=== PATIENT | female | born 1970 | race Caucasian/White ===

== ENCOUNTER 2018-05-31 04:48 | Inpatient (IN) ==
[2018-05-31 05:55] LABS: Bilirubin,Urine Negative (Negative); Clarity,Urine Clear (Clear); Color,Urine Yellow (Yellw/Straw); Glucose,Urine (UA) Negative (Negative); Leukocyte Esterase,Urine Negative (Negative); Nitrite,Urine Negative (Negative); PH,Urine 6.5 (5.0-8.5); Specific Gravity,Urine Less/Equal 1.005 (1.002-1.035); Urobilinogen,Urine 0.2 mg/dL (Less than 2)
[2018-05-31 05:56] LABS: Baso % (Auto) 0.6 % (0.0-2.0); Eos % (Auto) 0.7 % (0.0-4.0); Hematocrit 38.3 % (35.0-46.0); Hemoglobin 12.9 gm/dL (11.6-15.3); Lymph # (Auto) 0.9 th/mm3 (1.0-4.8); Mean Corpuscular HGB Conc 33.5 % (32.0-36.0); Mean Corpuscular Hemoglobin 30.7 pg (27.0-34.0); Mean Corpuscular Volume 91.5 fL (80.0-100.0); Mean Platelet Volume 8.1 fL (7.0-11.0); Mono # (Auto) 0.2 th/mm3 (0.0-0.9); Mono % (Auto) 3.9 % (0.0-8.0); Neut # (Auto) 4.6 th/mm3 (1.8-7.7); Neut % (Auto) 79.8 % (16.0-70.0); Platelet Count 255 th/mm3 (150-450); Red Blood Count 4.19 mil/mm3 (4.00-5.30); Red Cell Distribution Width 11.8 % (11.6-17.2); White Blood Count 5.7 th/mm3 (4.0-11.0)
[2018-05-31] MEDS ORDERED: Morphine Inj 4 MG/ML Vial IV.PUSH ONE (05:56)
[2018-05-31] MEDS ORDERED: Pantoprazole Inj 40 MG Vial IV.PUSH ONE (05:56)
--- NOTE | 2018-05-31 05:56 | ED ---
HPI General Chief complaint: GI Bleed Stated complaint: Severe abd pain,rectal bleeding x 11 hrs Time Seen by Provider: 05/31/18 05:28 Source: patient Mode of arrival: ambulatory Limitations: no limitations History of Present Illness HPI Narrative: 47-year-old female presents to the emergency department complaint of 11 hours of progressively worsening severe lower abdominal pain with multiple episodes of watery diarrhea and now with gross hematochezia. Patient did take azithromycin at the beginning of April for upper respiratory bronchitis infection. Patient is otherwise not been on any recent antibiotics. Patient does have irritable bowel syndrome denies history of inflammatory bowel disease Crohn's or colitis. patient had good urine output. No chest pain no shortness of breath no near syncope or syncope. Patient describes her abdominal pain is severe and tearing in nature. No prior history of rectal bleeding. MD complaint: Reports gross hematochezia Onset (ago): hour(s) (11) Pain Consistency: constant Severity: severe Relieving factors: none Exacerbating factors: bowel movement and movement Context: Reports other (IBS); Denies history of GI bleed, liver disease, hemorrhoids, swallowed FB, rectal trauma, alcohol abuse, known esophageal varices, medication/supplement use, foreign travel, unusual food, anticoagulant use and near syncope Associated symptoms: Reports abdominal pain, nausea, chills, malaise and weakness; Denies vomiting, epistaxis, fever, headaches, loss of appetite, easy bruising, rash, other bleeding, shortness of breath and syncope Treatments Prior to Arrival: Reports none Related Data Home Medications Medication Instructions Recorded Confirmed Calcium 500 1 tab PO DAILY 05/31/18 05/31/18 Cholestoff 2 tab PO DAILY 05/31/18 05/31/18 Vitamin D3 1 tab PO DAILY 05/31/18 05/31/18 alprazolam [Xanax] 0.5 tab PO HS PRN 05/31/18 05/31/18 vlexkhd-dsvsvyotwoxyu-hjmbbwjv 1 tab PO Q4-6H PRN 05/31/18 05/31/18 [Excedrin Migraine] ibuprofen 600 mg PO TID PRN 05/31/18 05/31/18 Previous Rx's Medication Instructions Recorded metronidazole [Flagyl] 500 mg PO Q12H #14 tab 05/31/18 ondansetron HCl [Zofran] 4 mg PO Q6H PRN #7 tab 05/31/18 oxycodone-acetaminophen [Percocet] 0.5 - 1 tab PO Q6H PRN #3 tab 05/31/18 Allergies Allergy/AdvReac Type Severity Reaction Status Date / Time No Known Allergies Allergy Verified 05/31/18 05:03 Review of Systems ROS: all other systems reviewed are negative [facility] Medical History Medical History Anxiety (Acute) Cholecystitis (Acute) Gastritis (Acute) IBS (irritable bowel syndrome) (Acute) Surgical History Surgical History History of abdominoplasty (Acute) History of breast augmentation (Acute) History of hysterectomy (Acute) Hx of cholecystectomy (Acute) Social History Social History Substance History: No History of Abuse Second Hand Smoke Exposure: No Smoking Status: Former smoker Tobacco Type: Cigarettes Number of Pack-Years (if former smoker): 6 How Often Do You Have a Drink Containing Alcohol: Monthly or less Recent Out of Country Travel within the Last 8 Weeks: No Immunization History Tetanus Immunization: <5 Years Exam Narrative Exam Narrative: GENERAL: Well-nourished, well-developed patient. SKIN: Focused skin assessment warm/dry. HEAD: Normocephalic. EYES: No scleral icterus. No injection or drainage. NECK: Supple, trachea midline. No JVD or lymphadenopathy. CARDIOVASCULAR: Regular rate and rhythm without murmurs, gallops, or rubs. RESPIRATORY: Breath sounds equal bilaterally. No accessory muscle use. GASTROINTESTINAL: Abdomen soft, diffusely tender abdomen to palpation with voluntary guarding no rebound, nondistended. Rectal exam: Normal sphincter tone gross blood on exam glove pain positive. MUSCULOSKELETAL: No cyanosis, or edema. BACK: Nontender without obvious deformity. No CVA tenderness. Procedures Hemaprompt Stool Procedural Steps Taken: specimen placed in appropriate test area, developer placed on specimen and control areas and controls appropriately positive and negative Hemaprompt Stool Result: positive Course Initial Documented Vital Signs Temperature 98.1 F 05/31/18 05:03 Pulse Rate 97 H 05/31/18 05:03 Respiratory Rate 22 05/31/18 05:03 Blood Pressure 117/73 05/31/18 05:03 Pulse Oximetry 99 05/31/18 05:03 Last Documented Vital Signs Temperature 97.5 F L 06/01/18 08:00 Pulse Rate 93 H 06/01/18 08:00 Respiratory Rate 20 06/01/18 08:00 Blood Pressure 110/64 06/01/18 08:00 Pulse Oximetry 97 06/01/18 08:00 Medical Decision Making MDM Narrative Medical decision making narrative: 47-year-old female presents with severe abdominal pain and hematochezia afebrile IV access obtained specimens collected and sent for resulting patient administered IV fluids Zofran Protonix morphine sulfate. At 6:55 AM patient reports feeling markedly improved after pain medication and IV fluids will be given additional liter of normal saline one-time dose of Flagyl; CAT scan is consistent with mild colitis. Discussed with patient observation admission in view of presentation for pain and hematochezia. Patient states she does not want to be admitted to the hospital as direct desirous of that of a trial of outpatient therapy with clear liquid diet advancing as tolerated and oral antibiotic. Patient plans on close follow-up with primary care provider. At this point time patient is afebrile, without leukocytosis, stable hemoglobin although has dropped 12.9 to 10.6, within normal range vital signs without tachycardia or hypotension, and has had no further rectal bleeding. Will give trial of oral antibiotic although patient is encouraged to stay for observation and is instructed to return immediately for pain recurrent bleeding dizziness fever or any change in condition. C. difficile PCR pending. Medical Screen Exam Complete: Yes Emergency Medical Condition: Yes Differential Diagnosis Differential Diagnosis: GI bleed, C. difficile colitis, colitis, diverticulitis , bowel obstruction, UTI Medical Records Medical records reviewed: Yes I reviewed the patient's medical records. Lab Data Lab results reviewed: Yes I reviewed the patient's lab results. Result diagrams: 06/01/18 05:50 06/01/18 08:06 Lab Results 05/31/18 05/31/18 05/31/18 Range/Units 05:30 05:30 05:30 CBC w Diff Auto diff final WBC 5.7 (4.0-11.0) th/mm3 RBC 4.19 (4.00-5.30) mil/mm3 Hgb 12.9 (11.6-15.3) gm/dL Hct 38.3 (35.0-46.0) % MCV 91.5 (80.0-100.0) fL MCH 30.7 (27.0-34.0) pg MCHC 33.5 (32.0-36.0) % RDW 11.8 (11.6-17.2) % Plt Count 255 (150-450) th/mm3 MPV 8.1 (7.0-11.0) fL Neut % (Auto) 79.8 H (16.0-70.0) % Lymph % (Auto) 15.0 (9.0-44.0) % [place] % (Auto) 3.9 (0.0-8.0) % Eos % (Auto) 0.7 (0.0-4.0) % Baso % (Auto) 0.6 (0.0-2.0) % Neut # (Auto) 4.6 (1.8-7.7) th/mm3 Lymph # (Auto) 0.9 L (1.0-4.8) th/mm3 [place] # (Auto) 0.2 (0.0-0.9) th/mm3 Eos # (Auto) 0.0 (0.0-0.4) th/mm3 Baso # (Auto) 0.0 (0.0-0.2) th/mm3 WBC Differential . Differential Comment . ESR (0-20) mm/hr PT 11.1 (9.8-11.6) sec INR 1.1 Ratio APTT 26.2 (23.4-31.7) sec Sodium 138 (136-145) meq/L Potassium 3.6 (3.5-5.1) meq/L Chloride 105 (98-107) meq/L Carbon Dioxide 27.3 (21.0-32.0) meq/L Anion Gap 6 (5-15) meq/L BUN 7 (7-18) mg/dL Creatinine 0.83 (0.50-1.00) mg/dL Estimated GFR 74 L (>89) mL/min Random Glucose 98 (74-106) mg/dL Calcium 8.7 (8.5-10.1) mg/dL Total Bilirubin 0.3 (0.2-1.0) mg/dL AST 14 L (15-37) U/L ALT 23 (10-53) U/L Alkaline Phosphatase 56 (45-117) U/L C-Reactive Protein (0.00-0.30) mg/dL Total Protein 7.6 (6.4-8.2) g/dL Albumin 4.0 (3.4-5.0) g/dL Lipase 79 (73-393) U/L Urine Color (Yellw/Straw) Urine Clarity (Clear) Urine pH (5.0-8.5) Ur Specific [place] (1.002-1.035) Urine Protein (Neg-Trace) mg/dL Urine Glucose (UA) (Negative) mg/dL Urine Ketones (Negative) mg/dL Urine Occult Blood (Negative) Urine Nitrate (Negative) Urine Bilirubin (Negative) Urine Urobilinogen (Less than 2) mg/dL Ur Leukocyte Esterase (Negative) Urine RBC (0-3) /hpf Urine WBC (0-5) /hpf Ur Squamous Epith Cells (0-5) /hpf Urine Bacteria (None) /hpf Micro UA Comment Ur Microscopic Review Urine Culture Comments Stl C.difficile DNA Amp (Negative) St C. diff Tox Epid 027 (Negative) Rheumatoid Factor Scrn (Negative) Rheumatoid Factor Titer Blood Type Blood Type Recheck Antibody Screen 05/31/18 05/31/18 05/31/18 Range/Units 05:30 05:30 05:45 CBC w Diff WBC (4.0-11.0) th/mm3 RBC (4.00-5.30) mil/mm3 Hgb (11.6-15.3) gm/dL Hct (35.0-46.0) % MCV (80.0-100.0) fL MCH (27.0-34.0) pg MCHC (32.0-36.0) % RDW (11.6-17.2) % Plt Count (150-450) th/mm3 MPV (7.0-11.0) fL Neut % (Auto) (16.0-70.0) % Lymph % (Auto) (9.0-44.0) % [place] % (Auto) (0.0-8.0) % Eos % (Auto) (0.0-4.0) % Baso % (Auto) (0.0-2.0) % Neut # (Auto) (1.8-7.7) th/mm3 Lymph # (Auto) (1.0-4.8) th/mm3 [place] # (Auto) (0.0-0.9) th/mm3 Eos # (Auto) (0.0-0.4) th/mm3 Baso # (Auto) (0.0-0.2) th/mm3 WBC Differential Differential Comment ESR 8 (0-20) mm/hr PT (9.8-11.6) sec INR Ratio APTT (23.4-31.7) sec Sodium (136-145) meq/L Potassium (3.5-5.1) meq/L Chloride (98-107) meq/L Carbon Dioxide (21.0-32.0) meq/L Anion Gap (5-15) meq/L BUN (7-18) mg/dL Creatinine (0.50-1.00) mg/dL Estimated GFR (>89) mL/min Random Glucose (74-106) mg/dL Calcium (8.5-10.1) mg/dL Total Bilirubin (0.2-1.0) mg/dL AST (15-37) U/L ALT (10-53) U/L Alkaline Phosphatase (45-117) U/L C-Reactive Protein (0.00-0.30) mg/dL Total Protein (6.4-8.2) g/dL Albumin (3.4-5.0) g/dL Lipase (73-393) U/L Urine Color Yellow (Yellw/Straw) Urine Clarity Clear (Clear) Urine pH 6.5 (5.0-8.5) Ur Specific [place] Less/equal 1.005 (1.002-1.035) Urine Protein Negative (Neg-Trace) mg/dL Urine Glucose (UA) Negative (Negative) mg/dL Urine Ketones Negative (Negative) mg/dL Urine Occult Blood Negative (Negative) Urine Nitrate Negative (Negative) Urine Bilirubin Negative (Negative) Urine Urobilinogen 0.2 (Less than 2) mg/dL Ur Leukocyte Esterase Negative (Negative) Urine RBC 0-3 (0-3) /hpf Urine WBC 0-5 (0-5) /hpf Ur Squamous Epith Cells 0-5 (0-5) /hpf Urine Bacteria Few H (None) /hpf Micro UA Comment Culture not ind Ur Microscopic Review Microscopic reviewed Urine Culture Comments Culture not ind Stl C.difficile DNA Amp (Negative) St C. diff Tox Epid 027 (Negative) Rheumatoid Factor Scrn (Negative) Rheumatoid Factor Titer Blood Type O Positive Blood Type Recheck Not needed Antibody Screen Negative 05/31/18 06/01/18 06/01/18 Range/Units 10:32 04:05 05:50 CBC w Diff Auto diff final WBC 2.8 L (4.0-11.0) th/mm3 RBC 3.33 L (4.00-5.30) mil/mm3 Hgb 10.6 L D (11.6-15.3) gm/dL Hct 31.2 L (35.0-46.0) % MCV 93.5 (80.0-100.0) fL MCH 31.7 (27.0-34.0) pg MCHC 33.8 (32.0-36.0) % RDW 12.5 (11.6-17.2) % Plt Count 172 D (150-450) th/mm3 MPV 8.5 (7.0-11.0) fL Neut % (Auto) 67.2 (16.0-70.0) % Lymph % (Auto) 23.0 (9.0-44.0) % [place] % (Auto) 8.1 H (0.0-8.0) % Eos % (Auto) 1.0 (0.0-4.0) % Baso % (Auto) 0.7 (0.0-2.0) % Neut # (Auto) 1.9 (1.8-7.7) th/mm3 Lymph # (Auto) 0.7 L (1.0-4.8) th/mm3 [place] # (Auto) 0.2 (0.0-0.9) th/mm3 Eos # (Auto) 0.0 (0.0-0.4) th/mm3 Baso # (Auto) 0.0 (0.0-0.2) th/mm3 WBC Differential . Differential Comment . ESR (0-20) mm/hr PT (9.8-11.6) sec INR Ratio APTT (23.4-31.7) sec Sodium (136-145) meq/L Potassium (3.5-5.1) meq/L Chloride (98-107) meq/L Carbon Dioxide (21.0-32.0) meq/L Anion Gap (5-15) meq/L BUN (7-18) mg/dL Creatinine (0.50-1.00) mg/dL Estimated GFR (>89) mL/min Random Glucose (74-106) mg/dL Calcium (8.5-10.1) mg/dL Total Bilirubin (0.2-1.0) mg/dL AST (15-37) U/L ALT (10-53) U/L Alkaline Phosphatase (45-117) U/L C-Reactive Protein Less than 0.29 (0.00-0.30) mg/dL Total Protein (6.4-8.2) g/dL Albumin (3.4-5.0) g/dL Lipase (73-393) U/L Urine Color (Yellw/Straw) Urine Clarity (Clear) Urine pH (5.0-8.5) Ur Specific [place] (1.002-1.035) Urine Protein (Neg-Trace) mg/dL Urine Glucose (UA) (Negative) mg/dL Urine Ketones (Negative) mg/dL Urine Occult Blood (Negative) Urine Nitrate (Negative) Urine Bilirubin (Negative) Urine Urobilinogen (Less than 2) mg/dL Ur Leukocyte Esterase (Negative) Urine RBC (0-3) /hpf Urine WBC (0-5) /hpf Ur Squamous Epith Cells (0-5) /hpf Urine Bacteria (None) /hpf Micro UA Comment Ur Microscopic Review Urine Culture Comments Stl C.difficile DNA Amp Negative (Negative) St C. diff Tox Epid 027 Negative (Negative) Rheumatoid Factor Scrn Negative (Negative) Rheumatoid Factor Titer Not Reportable Blood Type Blood Type Recheck Antibody Screen 06/01/18 Range/Units 08:06 CBC w Diff WBC (4.0-11.0) th/mm3 RBC (4.00-5.30) mil/mm3 Hgb (11.6-15.3) gm/dL Hct (35.0-46.0) % MCV (80.0-100.0) fL MCH (27.0-34.0) pg MCHC (32.0-36.0) % RDW (11.6-17.2) % Plt Count (150-450) th/mm3 MPV (7.0-11.0) fL Neut % (Auto) (16.0-70.0) % Lymph % (Auto) (9.0-44.0) % [place] % (Auto) (0.0-8.0) % Eos % (Auto) (0.0-4.0) % Baso % (Auto) (0.0-2.0) % Neut # (Auto) (1.8-7.7) th/mm3 Lymph # (Auto) (1.0-4.8) th/mm3 [place] # (Auto) (0.0-0.9) th/mm3 Eos # (Auto) (0.0-0.4) th/mm3 Baso # (Auto) (0.0-0.2) th/mm3 WBC Differential Differential Comment ESR (0-20) mm/hr PT (9.8-11.6) sec INR Ratio APTT (23.4-31.7) sec Sodium 142 (136-145) meq/L Potassium 4.0 (3.5-5.1) meq/L Chloride 109 H (98-107) meq/L Carbon Dioxide 28.4 (21.0-32.0) meq/L Anion Gap 5 (5-15) meq/L BUN 3 L (7-18) mg/dL Creatinine 0.72 (0.50-1.00) mg/dL Estimated GFR 88 L (>89) mL/min Random Glucose 92 (74-106) mg/dL Calcium 7.5 L D (8.5-10.1) mg/dL Total Bilirubin 0.4 (0.2-1.0) mg/dL AST 908 H (15-37) U/L ALT 784 H (10-53) U/L Alkaline Phosphatase 116 (45-117) U/L C-Reactive Protein (0.00-0.30) mg/dL Total Protein 6.6 D (6.4-8.2) g/dL Albumin 3.4 D (3.4-5.0) g/dL Lipase (73-393) U/L Urine Color (Yellw/Straw) Urine Clarity (Clear) Urine pH (5.0-8.5) Ur Specific [place] (1.002-1.035) Urine Protein (Neg-Trace) mg/dL Urine Glucose (UA) (Negative) mg/dL Urine Ketones (Negative) mg/dL Urine Occult Blood (Negative) Urine Nitrate (Negative) Urine Bilirubin (Negative) Urine Urobilinogen (Less than 2) mg/dL Ur Leukocyte Esterase (Negative) Urine RBC (0-3) /hpf Urine WBC (0-5) /hpf Ur Squamous Epith Cells (0-5) /hpf Urine Bacteria (None) /hpf Micro UA Comment Ur Microscopic Review Urine Culture Comments Stl C.difficile DNA Amp (Negative) St C. diff Tox Epid 027 (Negative) Rheumatoid Factor Scrn (Negative) Rheumatoid Factor Titer Blood Type Blood Type Recheck Antibody Screen Imaging Data Radiologist's impression: Abdomen/Pelvis CT 05/31/18 05:56 CONCLUSION: Likely mild distal colitis Discharge Plan Discharge Disposition Patient Disposition: Discharge Home Discharge Condition Condition: Stable Discharge Order Discharge Orders: Discharge Order (Routine); Ordered 05/31/18 Ordered By: Nadya Maza ED Use Only Admit Order (Routine); Ordered 05/31/18 Ordered By: Jae Santana Discharge Details Diagnosis: Colitis Physicians Team ED Provider: Nadya Maza Primary Care Provider: Yoselyn Acevedo Attending Provider: Allen Villegas Other Providers: Alison Patino Status ED Status: Left Department Discharge Information Discharge Date/Time: 05/31/18 11:05
[2018-05-31 06:02] LABS: Chloride 105 meq/L (98-107); Potassium 3.6 meq/L (3.5-5.1); Sodium 138 meq/L (136-145)
[2018-05-31 06:06] LABS: Activated Partial Thrombo Time 26.2 sec (23.4-31.7); Anion Gap 6 meq/L (5-15); Blood Urea Nitrogen 7 mg/dL (7-18); Calcium 8.7 mg/dL (8.5-10.1); Carbon Dioxide 27.3 meq/L (21.0-32.0); Glucose,Random 98 mg/dL (74-106); INR 1.1 Ratio; Lipase 79 U/L (73-393); Prothrombin Time 11.1 sec (9.8-11.6)
[2018-05-31 06:09] LABS: Alanine Aminotransferase 23 U/L (10-53); Aspartate Aminotransferase 14 U/L (15-37); Glomerular Filtration Rate 74 mL/min (>89)
[2018-05-31 06:11] LABS: Total Protein 7.6 g/dL (6.4-8.2)
[2018-05-31 06:12] LABS: Bacteria,Urine Few /hpf; RBC,Urine 0-3 /hpf (0-3); Squamous Epithelial Cell,Urine 0-5 /hpf (0-5); WBC,Urine 0-5 /hpf (0-5)
[2018-05-31 06:12] LABS: Alkaline Phosphatase 56 U/L (45-117)
--- NOTE | 2018-05-31 06:47 | CT ---
EXAM DATE: 05/31/2018 6:36 AM EST AGE/SEX: 47 years / Female INDICATIONS: Abdomen pain with bloody diarrhea for 12 hours CLINICAL DATA: This is the patient's initial encounter. Patient reports that signs and symptoms have been present for 1 day and indicates a pain score of 7/10. MEDICAL/SURGICAL HISTORY: Inflammatory bowel disease. Cholecystectomy. Hysterectomy. ORAL CONTRAST: No oral contrast ingested. RADIATION DOSE: 8.63 CTDI (mGy) COMPARISON: [facility], CT ABDOMEN & PELVIS W CONTRAST, 01/02/2016. . TECHNIQUE: Multiple contiguous axial images were obtained through the abdomen and pelvis following b olus infusion of 100 ml Omnipaque 350 (iohexol) nonionic water-soluble contrast as a single exam do se. No oral contrast ingested. Using automated exposure control and adjustment of the mA and/or kV a ccording to patient size, radiation dose was kept as low as reasonably achievable to obtain optimal d iagnostic quality images. DICOM format image data is available electronically for review and compari son. FINDINGS: Lower Lungs: The visualized lower lungs are clear. Liver: The liver has a homogeneous density without space-occupying lesion. There is no dilation of th e biliary tree. Spleen: Homogeneous density without enlargement. Pancreas: Unremarkable without mass or calcification. Kidneys: Small cyst in the anterior lateral lower pole cortex of the left kidney. No evidence of karla picious mass, stone or hydronephrosis. Adrenal Glands: Unremarkable. Aorta: The aorta and proximal iliac vessels are grossly unremarkable without aneurysmal dilation. Bowel/Mesentery: Mild concentric wall thickening involving the distal colon which is decompressed. N o abnormal dilatation or focal inflammatory change. Abdominal Wall: Intact. Retroperitoneum: No evidence of adenopathy in the retrocrural, para-aortic, or deep pelvic regions. Circumaortic left renal vein Bladder: Contours are smooth. Reproductive Organs: Uterus surgically absent. Tiny cyst in presumed retained right ovary Inguinal: The inguinal region is unremarkable without evidence of adenopathy. Bony Structures: Unremarkable. CONCLUSION: Likely mild distal colitis Electronically signed by: Reji Allen MD Board Certified Radiologist 05/31/2018 6:45 AM EST
[2018-05-31] MEDS ORDERED: Sod Chloride 0.9% Inj 1,000 ML IV.SIG SCH (07:15)
[2018-05-31] MEDS ORDERED: Acetaminophen 325 MG Tablet PO PRN (10:11)
[2018-05-31] MEDS: metroNIDAZOLE 500 MG Tablet PO SCH ×2 (10:41→13:26)
[2018-05-31] MEDS: Sod Chloride 0.9% Inj 1,000 ML IV.CONT SCH ×2 (10:50→20:46)
[2018-05-31] MEDS: Lactobacillus Acidophilus/L. Spores Tablet PO SCH ×2 (12:05→18:38)
[2018-05-31] MEDS: Morphine Sulfate Inj 2 MG/ML Vial IV.PUSH PRN ×3 (14:46→22:37)
--- NOTE | 2018-05-31 15:42 | P.HPIM ---
History of Present Illness Primary Care Physician: Yoselyn Acevedo Chief Complaint: Abdominal pain, bright red blood per rectum History of Present Illness: 47-year-old female with known history of bowel syndrome, anxiety who presented to hospital for evaluation of abdominal pain, blood in her stool. Patient states that she is in normal state of health until yesterday proxy [id number] when she started developing abdominal pain. She contributed this to her irritable bowel syndrome and usually she will have a bowel movement and the pain goes away and she is much better. However, the patient had a bowel movement the pain did not go away and she started noticing that her stool was looser than usual and that there was bright red blood in her stool. Patient states that she had approximately 10 bowel movements after that and the more she had the more consistency of blood and there was stool. Because it did not get any better she came to the hospital for evaluation. Upon initial workup patient has CT scan which did indicate likely mild distal colitis. Patient was given morphine for the pain in the emergency department with only temporary relief the pain did come back. Because of the patient's symptoms, bloody stool it was recommended by the ER physician that the patient be admitted to hospital for further evaluation and management. Review of Systems Review of Systems: all other systems reviewed are negative Gastrointestinal: Reports abdominal pain, Reports hematochezia and Reports change in stool character [facility] Medical History Medical History Anxiety (Acute) Cholecystitis (Acute) Gastritis (Acute) IBS (irritable bowel syndrome) (Acute) Surgical History Surgical History History of abdominoplasty (Acute) History of breast augmentation (Acute) History of hysterectomy (Acute) Hx of cholecystectomy (Acute) Social History Social History Substance History: No History of Abuse Second Hand Smoke Exposure: No Smoking Status: Former smoker Tobacco Type: Cigarettes Number of Pack-Years (if former smoker): 6 How Often Do You Have a Drink Containing Alcohol: Monthly or less Recent Out of Country Travel within the Last 8 Weeks: No Immunization History Tetanus Immunization: <5 Years Medications and Allergies Allergies Allergy/AdvReac Type Severity Reaction Status Date / Time No Known Allergies Allergy Verified 05/31/18 05:03 Home Medications Medication Instructions Recorded Confirmed Type Calcium 500 1 tab PO DAILY 05/31/18 05/31/18 History Cholestoff 2 tab PO DAILY 05/31/18 05/31/18 History Vitamin D3 1 tab PO DAILY 05/31/18 05/31/18 History alprazolam [Xanax] 0.5 tab PO HS PRN 05/31/18 05/31/18 History aoesrcn-tklrhrvkodrkq-kuzhocll 1 tab PO Q4-6H PRN 05/31/18 05/31/18 History [Excedrin Migraine] ibuprofen 600 mg PO TID PRN 05/31/18 05/31/18 History Active Medications: Active Medications Acetaminophen (Tylenol) 650 mg PO Q4H PRN PRN Reason: Temp > 100.4 Al Hydroxide/Mg Hydroxide (Milk Of Magnemory Liq) 30 ml PO Q12H PRN PRN Reason: Mild Constipation Sodium Chloride (Ns Inj) 1,000 mls @ 100 mls/hr IV.CONT .Q10H [facility] Last Infusion: 05/31/18 11:03 Dose: 100 mls/hr Metronidazole/Sodium Chloride (Flagyl 250 Mg Inj) 50 mls @ 100 mls/hr IV.SIG Q8H [facility] Last Admin: 05/31/18 14:47 Dose: 100 mls/hr Lactobacillus Acidophilus (Lactinex) 1 tab PO TID [facility] Last Admin: 05/31/18 12:05 Dose: 1 tab Morphine Sulfate (Morphine Inj) 2 mg IV.PUSH Q4H PRN PRN Reason: PAIN 3-6 Last Admin: 05/31/18 14:46 Dose: 2 mg Morphine Sulfate (Morphine Inj) 4 mg IV.PUSH Q4H PRN PRN Reason: Pain 7 to 10 Ondansetron HCl (Zofran Inj) 4 mg IV.PUSH Q6H PRN PRN Reason: NAUSEA OR VOMITING Last Admin: 05/31/18 14:58 Dose: 4 mg Sodium Chloride (Ns Flush) 2 ml IV.FLUSH BID [facility] Sodium Chloride (Ns Flush) 2 ml IV.FLUSH PRN PRN PRN Reason: FLUSH AFTER USING IV ACCESS Physical Exam Vital signs: Vital Signs 05/31/18 05:03 05/31/18 05:57 05/31/18 06:09 Temperature 98.1 F Pulse Rate 97 H 81 Respiratory Rate 22 22 Blood Pressure 117/73 111/76 Pulse Oximetry 99 99 98 05/31/18 06:11 05/31/18 06:15 05/31/18 07:00 Temperature Pulse Rate 83 84 Respiratory Rate 16 Blood Pressure 104/71 Pulse Oximetry 98 95 05/31/18 07:22 05/31/18 09:34 05/31/18 10:35 Temperature Pulse Rate 82 83 74 Respiratory Rate 16 16 Blood Pressure 125/76 116/84 Pulse Oximetry 100 05/31/18 12:00 Temperature 96 F L Pulse Rate 84 Respiratory Rate 20 Blood Pressure 107/70 Pulse Oximetry 98 Intake & Output 05/30/18 05/31/18 05/31/18 18:59 06:59 18:59 Intake Total 1120 / 1120 Balance 1120 / 1120 Weight 65.7 kg Intake: IV 1120 / 1120 NS Inj 1,000 ML @ 100 mls/hr IV 20 / .CONT .Q10H [facility] Rx#:[id number] NS Inj 1,000 ML @ 1000 mls/hr 1000 / 1000 IV.SIG BOLUS [facility] Rx#:[id number] Flagyl 500 MG Inj 100 ML @ 100 100 / 100 mls/hr IV.SIG ONCE ONE Rx#: [id number] Narrative: GENERAL: Well-developed, well-nourished, in no acute distress. alert and orientated HEENT: Head is normocephalic without any lesions or masses noted. Facial features are symmetric. Eyes: Pupils equal round reactive to light. Extraocular muscles are intact. Conjunctivae were clear. Oropharyngeal: Pharynx without any erythema edema. Tongue is midline without deviation. Buccal mucosa is moist without any masses or lesions NECK: Supple without any masses. Trachea midline no deviation. No JVD, no bruits are appreciated CARDIAC: Regular rhythm, regular rate. S1/S2 are heard. No murmurs gallops or rubs. LUNGS: Clear to auscultation bilaterally. No wheeze, rhonchi or rales. No use of accessory muscles on inspiration or expiration. ABDOMEN: Soft, direct tenderness noted in the left lower quadrant. Nondistended. Bowel sounds heard in all 4 quadrants. No organomegaly or masses. Negative rebound, negative guarding EXTREMITIES: No edema, pulses are equal bilaterally. No cyanosis or clubbing NEUROLOGY: Mood and affect appear appropriate. Cranial nerves II through XII grossly intact. Muscle strength 5/5 in upper and lower extremities bilaterally. Deep tendon reflexes are 2+ in upper and lower extremities bilaterally. Results Labs CBC & Chem 7: 05/31/18 05:30 05/31/18 05:30 Imaging Impressions Abdomen/Pelvis CT 05/31/18 05:56 CONCLUSION: Likely mild distal colitis Caprini VTE Risk Assessment Caprini VTE Risk Assessment: No/Low Risk (score <= 1) Caprini Risk Assessment Model: Point Value = 1 Point Value = 2 Point Value = 3 Point Value = 5 Age 41-60 Minor surgery BMI > 25 kg/m2 Swollen legs Varicose veins or History of unexplained or recurrent spontaneous Oral contraceptives or hormone replacement Sepsis (< 1 month) Serious lung disease, including pneumonia (< 1 month) Abnormal pulmonary function Acute myocardial infarction Congestive heart failure (< 1 month) History of inflammatory bowel disease Medical patient at bed rest Age 61-74 Arthroscopic surgery Major open surgery (> 45 min) Laparoscopic surgery (> 45 min) Malignancy Confined to bed (> 72 hours) Immobilizing plaster cast Central venous access Age >= 75 History of VTE Family history of VTE Factor V Leiden Prothrombin [id number] Lupus anticoagulant Anticardiolipin antibodies Elevated serum homocysteine Heparin-induced thrombocytopenia Other congenital or acquired thrombophilia Stroke (< 1 month) Elective arthroplasty Hip, pelvis, or leg fracture Acute spinal cord injury (< 1 month) Prophylaxis Regimen: Total Risk Factor Score Risk Level Prophylaxis Regimen 0-1 Low Early ambulation 2 Moderate Order ONE of the following: *Sequential Compression Device (SCD) *Heparin 5000 units SQ BID 3-4 Higher Order ONE of the following medications: *Heparin 5000 units SQ TID *Enoxaparin/Lovenox 40 mg SQ daily (WT < 150 kg, CrCl > 30 mL/min) *Enoxaparin/Lovenox 30 mg SQ daily (WT < 150 kg, CrCl > 10-29 mL/min) *Enoxaparin/Lovenox 30 mg SQ BID (WT < 150 kg, CrCl > 30 mL/min) AND/OR *Sequential Compression Device (SCD) 5 or more Highest Order ONE of the following medications: *Heparin 5000 units SQ TID (Preferred with Epidurals) *Enoxaparin/Lovenox 40 mg SQ daily (WT < 150 kg, CrCl > 30 mL/min) *Enoxaparin/Lovenox 30 mg SQ daily (WT < 150 kg, CrCl > 10-29 mL/min) *Enoxaparin/Lovenox 30 mg SQ BID (WT < 150 kg, CrCl > 30 mL/min) AND *Sequential Compression Device (SCD) Assessment and Plan Plan Acute colitis with hematochezia CT scan indicating likely mild distal colitis No significant leukocytosis. Hemoglobin appears to be stable from previous labs but given the patient having 10 bowel movements with bloody stool would expect serial hemoglobin to drop. Continue antibiotics to include Cipro and Flagyl, probiotic for Protection Check stool for C. difficile, enteric pathogens, WBCs, ova and parasites Consult GI for further recommendations Continue IV fluids Continue pain control DVT prevention Sequential compression devices Avoid chemical prophylaxis secondary to hematochezia Discussed Condition With: Patient, nursing staff, Dr. Villegas H&P: Quality VTE Deep Vein Thrombosis/Pulmonary Embolism Present on Admission: No
[2018-05-31] MEDS: Ciprofloxacin 400 MG/200 ML 400 MG/200 ML PIGGYBACK IV.SIG SCH (16:18)
[2018-05-31] MEDS ORDERED: Magnesium Citrate Liq 300 ML Bottle PO ONE (18:50)
--- NOTE | 2018-05-31 21:30 | MB ---
cc: Alison Patino MD, Daniel C MD , Alison Patino MD DATE: 05/31/[address] Allen Villegas. REASON FOR CONSULTATION: Rectal bleeding, abdominal pain and colitis. HISTORY OF PRESENT ILLNESS: Ms. Lopez is a 47-year-old lady with previous history of IBS presents with 1-day history of lower abdominal discomfort associated with rectal bleeding and some diarrhea. She says she has never had any problems with bleeding in the past, although she has had diarrhea and lower abdominal pain related to her IBS in the past. She says generally she is more constipated, but never has had bleeding in the past. CT scan on admission shows left-sided colitis. REVIEW OF SYSTEMS: The patient is still having left lower quadrant discomfort, but has had no bowel movement since admission. There has been no bleeding, no diarrhea. PAST MEDICAL HISTORY: Anxiety, gastritis, irritable bowel syndrome. PAST SURGICAL HISTORY: Cholecystectomy, abdominoplasty, breast augmentation, hysterectomy. SOCIAL HISTORY: Quit smoking some time ago. No alcohol reported. MEDICATIONS: NONE DOCUMENTED. MEDICINES ON ADMISSION: Include 1. Xanax. 2. Excedrin. 3. Ibuprofen. 4. Calcium. 5. Currently also on lactobacillus. 6. Metronidazole 7. Zofran. PHYSICAL EXAMINATION: GENERAL: Reveals a well-nourished lady in no apparent distress. VITAL SIGNS: Stable. HEAD AND NECK: Anicteric sclerae. LUNGS: Bilateral air entry with rales. ABDOMEN: Soft. Tenderness in the left lower quadrant. No guarding, no rigidity. CENTRAL NERVOUS SYSTEM: Nonfocal. RECTAL: Deferred at this time. LABORATORY DATA: Reveal white cell count of 5.7, hemoglobin 12.9, INR 1.1. Creatinine 0.83. Liver functions are normal. CT of the abdomen and pelvis reveals left colon colitis. IMPRESSION: Colitis, likely infectious colitis. RECOMMENDATIONS: Options discussed with the patient including waiting for stool studies. The patient has already been started on antibiotics. The other option will be to proceed with a colonoscopy. The patient wishes to proceed with a colonoscopy. Magnesium citrate prep would be used. This is scheduled for tomorrow. Further recommendations to follow based on the above. MD Polina Marte , 06:41 PM , 06:48 PM
[2018-05-31] MEDS: ALPRAZolam 0.25 MG Tablet PO PRN (22:37)
[2018-06-01] MEDS: Morphine Sulfate Inj 2 MG/ML Vial IV.PUSH PRN ×2 (03:41→09:19)
[2018-06-01] MEDS: Ciprofloxacin 400 MG/200 ML 400 MG/200 ML PIGGYBACK IV.SIG SCH ×2 (03:42→17:19)
[2018-06-01] MEDS: Sod Chloride 0.9% Inj 1,000 ML IV.CONT SCH ×3 (05:53→18:14)
[2018-06-01 06:23] LABS: Baso % (Auto) 0.7 % (0.0-2.0); Hematocrit 31.2 % (35.0-46.0); Hemoglobin 10.6 gm/dL (11.6-15.3); Lymph # (Auto) 0.7 th/mm3 (1.0-4.8); Mean Corpuscular HGB Conc 33.8 % (32.0-36.0); Mean Corpuscular Hemoglobin 31.7 pg (27.0-34.0); Mean Corpuscular Volume 93.5 fL (80.0-100.0); Mean Platelet Volume 8.5 fL (7.0-11.0); Mono # (Auto) 0.2 th/mm3 (0.0-0.9); Mono % (Auto) 8.1 % (0.0-8.0); Neut # (Auto) 1.9 th/mm3 (1.8-7.7); Neut % (Auto) 67.2 % (16.0-70.0); Platelet Count 172 th/mm3 (150-450); Red Blood Count 3.33 mil/mm3 (4.00-5.30); Red Cell Distribution Width 12.5 % (11.6-17.2); White Blood Count 2.8 th/mm3 (4.0-11.0)
[2018-06-01 06:26] LABS: Chloride 109 meq/L (98-107); Sodium 142 meq/L (136-145)
[2018-06-01 09:02] LABS: Anion Gap 5 meq/L (5-15); Blood Urea Nitrogen 3 mg/dL (7-18); Calcium 7.5 mg/dL (8.5-10.1); Carbon Dioxide 28.4 meq/L (21.0-32.0); Glomerular Filtration Rate 88 mL/min (>89); Glucose,Random 92 mg/dL (74-106); Total Protein 6.6 g/dL (6.4-8.2)
[2018-06-01 09:03] LABS: Albumin 3.4 g/dL (3.4-5.0); Alkaline Phosphatase 116 U/L (45-117)
[2018-06-01 09:07] LABS: Alanine Aminotransferase 784 U/L (10-53); Aspartate Aminotransferase 908 U/L (15-37)
[2018-06-01] MEDS: Lactobacillus Acidophilus/L. Spores Tablet PO SCH ×3 (09:26→18:11)
--- NOTE | 2018-06-01 11:05 | P.PNIM ---
Subjective Interval history: 47-year-old female who is seen examined for follow- up on colitis, hematochezia. Patient states that she has been experiencing worse headache she is ever had in her life and it is different than her typical migraines. States that if she pushes on her bilateral christianity area it does give some minimal relief. Awaiting colonoscopy. Vital signs are stable. Patient remains afebrile. Physical Exam Vital signs: Vital Signs 05/31/18 12:00 05/31/18 14:48 05/31/18 16:00 Temperature 96 F L 96.3 F L Pulse Rate 84 74 Respiratory Rate 20 18 20 Blood Pressure 107/70 115/69 Pulse Oximetry 98 96 05/31/18 18:40 05/31/18 19:15 05/31/18 20:00 Temperature 96.9 F L Pulse Rate 78 Respiratory Rate 18 18 Blood Pressure 114/62 Pulse Oximetry 97 99 06/01/18 00:00 06/01/18 08:00 Temperature 97.1 F L 97.5 F L Pulse Rate 85 93 H Respiratory Rate 16 20 Blood Pressure 102/60 110/64 Pulse Oximetry 96 97 Intake & Output 05/31/18 06/01/18 06/01/18 18:59 06:59 18:59 Intake Total 1770 / 1770 3280 / 3280 Balance 1770 / 1770 3280 / 3280 Weight 65.7 kg 65.7 kg Intake: IV 1370 / 1370 2280 / 2280 NS Inj 1,000 ML @ 100 mls/hr IV 1979 .CONT .Q10H [facility] Rx#:[id number] Cipro 400 MG/200 ML Inj 400 mg 200 / 200 200 / 200 In 200 ml @ 200 mls/hr IV.SIG Q12H [facility] Rx#:[id number] NS Inj 1,000 ML @ 1000 mls/hr 1000 / 1000 IV.SIG BOLUS [facility] Rx#:[id number] Flagyl 250 mg Inj 50 ML @ 100 50 / 50 100 / 100 mls/hr IV.SIG Q8H [facility] Rx#: [id number] Flagyl 500 MG Inj 100 ML @ 100 100 / 100 mls/hr IV.SIG ONCE ONE Rx#: [id number] Oral 400 / 400 Oral Supplement 1000 / 1000 Other: # Voids 1 2 Weight On Admission 65.7 kg Narrative: GENERAL: Well-developed, well-nourished, in no acute distress. alert and orientated HEENT: Head is normocephalic without any lesions or masses noted. Facial features are symmetric. Eyes: Extraocular muscles are intact. Conjunctivae were clear. NECK: Supple without any masses. Trachea midline no deviation. No JVD CARDIAC: Regular rhythm, regular rate. S1/S2 are heard. No murmurs gallops or rubs. LUNGS: Clear to auscultation bilaterally. No wheeze, rhonchi or rales. No use of accessory muscles on inspiration or expiration. ABDOMEN: Soft, nontender. Nondistended. Bowel sounds heard in all 4 quadrants. No organomegaly or masses. Negative rebound, negative guarding EXTREMITIES: No edema, pulses are equal bilaterally. No cyanosis or clubbing NEUROLOGY: Mood and affect appear appropriate. Cranial nerves II through XII grossly intact. Moving all extremities, speech is clear Results Labs CBC & Chem 7: 06/01/18 05:50 06/01/18 08:06 Assessment and Plan Plan Acute colitis with hematochezia CT scan indicating likely mild distal colitis No significant leukocytosis. Hemoglobin hematocrit have had a mild decrease from 12.9 -->10.6 Continue antibiotics Cipro and Flagyl, probiotic for Protection Stool for C. difficile was negative Enteric pathogens, WBCs, ova and parasites are pending Consulted GI for further recommendations, plans for colonoscopy today Continue IV fluids Continue pain control Acute liver enzyme elevation Unknown etiology at this time Reviewed medication list and list does not appear to have any medication can cause acute liver injury Given the patient presenting with abdominal pain, diarrhea, recent illness. Possible acute hepatitis. However bilirubin was normal, liver enzymes with acute elevation with AST going from 14--> 908 Obtain liver ultrasound Obtain hepatitis panel Cephalgia Patient does have history of migraines, however, She indicates that this headache is worse than any headache she had before and is different than her normal headaches Possible etiology could be the use of morphine CT of the brain did not indicate any acute abnormality Imitrex for cephalgia DVT prevention Sequential compression devices Avoid chemical prophylaxis secondary to hematochezia Discussed Condition With: Patient, nursing staff, Dr. Villegas ATTENDING COMMENTS: New onset hepatitis today. Etiology may be reactive vs. autoimmune. Ciprofloxacin discontinued for possible hepatitis reactivity. 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 Flagyl discontinued for possible headache reaction. Zosyn started as a replacement for enteric coverage , until finalized enteric pathogen studies resulted. If steroids suggest benefit, the possibility of a steroid taper and recommendation for further investigation into food allergy/reactivity is discussed with the patient, for recommended persuit as an outpatient. For now, monitor for improvements in headache, hepatitis, and colitis. Progress Note: Quality VTE Deep Vein Thrombosis/Pulmonary Embolism Present on Admission: No
[2018-06-01] MEDS ORDERED: Chlorhexidine Gluconate 2% 1 Pack (2 Cloths) TOPICAL ONE ×2 (11:55→12:06)
[2018-06-01] MEDS ORDERED: Metoprolol Tartrate 25 MG Tablet PO ONE (11:55)
[2018-06-01] MEDS ORDERED: Sodium Chlor 0.9% Inj 500 ML IV.SIG SCH ×2 (12:00→13:00)
[2018-06-01] MEDS ORDERED: Famotidine PF Inj 20 MG/2 ML Vial ONE (12:21)
--- NOTE | 2018-06-01 13:08 | GIPROC ---
[facility] [address], [address] COLONOSCOPY PROCEDURE REPORT EXAM DATE: 06/01/2018 PATIENT NAME: Lisette Lopez MR #: [id number] BIRTHDATE: 1970 ENDOSCOPIST: Alison Patino ORDER #: [id number] CLAIMS INVESTIGATOR: Kole Luo and Maddie Rivera STATUS: inpatient INDICATIONS: The patient is a 47 yr old female here for a colonoscopy due to abdominal pain and hematochezia PROCEDURE PERFORMED: Colonoscopy with biopsy MEDICATIONS: None and Per Anesthesia. PREP QUALITY: The [place] Bowel Prep Score was Right colon 2, Mid colon 2, and Left colon 2. Total = 6. PREP TYPE:Magnesium Citrate ESTIMATED BLOOD LOSS: None CONSENT: The patient understands the risks and benefits of the procedure and understands that these risks include, but are not limited to: sedation, allergic reaction, infection, perforation and/or bleeding. Alternative means of evaluation and treatment include, among others: physical exam, x-rays, and/or surgical intervention. The patient elects to proceed with this endoscopic procedure. medical equipment was checked for proper function. Hand hygiene and appropriate measures for infection prevention was taken. After the risks, benefits and alternatives of the procedure were thoroughly explained, Informed consent was verified, confirmed and timeout was successfully executed by the treatment team. A digital exam revealed external hemorrhoids The Pentax [id number] endoscope was introduced through the anus and advanced to the cecum, which was identified by both the appendix and ileocecal valve. The instrument was then slowly withdrawn as the colon was fully examined. COLON FINDINGS: A diffuse circumferential patch of colitis was found in the descending colon and sigmoid colon. The mucosa was congested, edematous, erythematous and friable. This is consistent with infectious colitis disease. Multiple biopsies were performed using cold forceps. Retroflexed views revealed internal hemorrhoids and Retroflexed views revealed small internal hemorrhoids The scope was then completely withdrawn from the patient and the procedure terminated. PROCEDURE WITHDRAWAL TIME:7minutes ADVERSE EVENTS: There were no complications. IMPRESSIONS: 1. Diffuse circumferential colitis was found in the descending colon and sigmoid colon; The mucosa was congested, edematous, erythematous and friable; This is consistent with infectious colitis.; multiple biopsies were performed using cold forceps 2. Retroflexed views revealed internal hemorrhoids 3. Retroflexed views revealed small internal hemorrhoids 4. Revealed external hemorrhoids RECOMMENDATIONS: 1. Await biopsy results. Biopsy results will not be ready for 7-10 days. If you don't hear from us in two weeks, call our office for results. 2. Continue surveillance 3. Yearly hemoccult RECALL: Return 1 year Colonoscopy, pending biopsy results Alison Patino eSigned: Alison Patino MD 06/01/2018 1:08 PM cc: Alli Mitchell M.D. PATIENT NAME: Lisette Lopez MR#: [id number]
[2018-06-01 13:35] LABS: Anti-Nuclear Antibody Screen Pos (Neg)
--- NOTE | 2018-06-01 13:56 | CT ---
EXAM DATE: 06/01/2018 1:50 PM EST AGE/SEX: 47 years / Female INDICATIONS: Severe headache. CLINICAL DATA: This is the patient's initial encounter. Patient reports that signs and symptoms have been present for 1 day and indicates a pain score of 9/10. MEDICAL/SURGICAL HISTORY: . Gastritis. Cholecystectomy. Hysterectomy. RADIATION DOSE: 61.14 CTDI (mGy) COMPARISON: No prior exams available for comparison. TECHNIQUE: CT of the head without contrast. Using automated exposure control and adjustment of the mA and/or kV according to patient size, radiation dose was kept as low as reasonably achievable to ob tain optimal diagnostic quality images. DICOM format image data is available electronically for revi ew and comparison. FINDINGS: Cerebrum: The ventricles are normal for age. No evidence of midline shift, mass lesion, hemorrhage or acute infarction. No extraaxial fluid collections are seen. Posterior Fossa: The cerebellum and brainstem are intact. The 4th ventricle is midline. The cerebe llopontine angle is unremarkable. Extracranial: The visualized portion of the orbits is intact. Skull: The calvaria is intact. Small osteoma right frontal bone No evidence of skull fracture. CONCLUSION: 1. Negative for acute process. Inflammatory process cannot be excluded on noncontrast CT. . . Electronically signed by: José Torrez MD Board Certified Radiologist 06/01/2018 1:55 PM EST
--- NOTE | 2018-06-01 14:37 | US ---
EXAM DATE: 06/01/2018 2:27 PM EST AGE/SEX: 47 years / Female INDICATIONS: Acute liver enzyme elevation. CLINICAL DATA: This is the patient's initial encounter. Patient reports that signs and symptoms have been present for 1 day and indicates a pain score of 0/10. MEDICAL/SURGICAL HISTORY: . Inflammatory bowel disease. . Cholecystectomy. Hysterectomy COMPARISON: [facility], CT ABDOMEN & PELVIS W CONTRAST, 05/31/2018. . MEASUREMENTS: Liver:__ 15.2 cm. Common Bile Duct:__ 9mm. Right Kidney:__ 10.1 x 3.7 x 5.1 cm. FINDINGS: Liver: Normal echogenicity without focal lesion or ductal dilatation. Portal Vein: Hepatopedal flow seen in portal vein. Common Duct: 9 mm common duct, probably reservoir phenomena. Gallbladder: Surgically absent. Pancreas: The visualized portions are within normal limits Right Kidney: Normal echogenicity and cortical thickness. No mass or hydronephrosis. Other: No ascites CONCLUSION: 1. Gallbladder surgically absent with 9 mm common duct, probably reservoir phenomena Electronically signed by: José Torrez MD Board Certified Radiologist 06/01/2018 2:35 PM EST
[2018-06-01] MEDS: Morphine Inj 4 MG/ML Vial IV.PUSH PRN (16:09)
[2018-06-01] MEDS ORDERED: MethylPREDNISolone Sod Succinate Inj 40 MG/ML Vial IV.PUSH ONE (17:09)
[2018-06-01] MEDS: Piperacil/Tazo 3.375 GM Premix 3.375 GM/50 ML PIGGYBACK IV.SIG SCH (19:23)
[2018-06-01] MEDS: ALPRAZolam 0.25 MG Tablet PO PRN (20:58)
[2018-06-01] MEDS: MethylPREDNISolone Sod Succinate Inj 40 MG/ML Vial IV.PUSH SCH (23:17)
[2018-06-01] MEDS ORDERED: Famotidine 20 MG Tablet PO ONE (23:49)
[2018-06-02] MEDS: Sod Chloride 0.9% Inj 1,000 ML IV.CONT SCH ×2 (03:56→15:43)
[2018-06-02] MEDS: Piperacil/Tazo 3.375 GM Premix 3.375 GM/50 ML PIGGYBACK IV.SIG SCH ×4 (03:57→20:46)
[2018-06-02] MEDS: MethylPREDNISolone Sod Succinate Inj 40 MG/ML Vial IV.PUSH SCH ×3 (05:02→17:24)
[2018-06-02] MEDS: Morphine Inj 4 MG/ML Vial IV.PUSH PRN ×2 (05:16→22:37)
[2018-06-02 06:27] LABS: Baso % (Auto) 0.1 % (0.0-2.0); Eos % (Auto) 0.1 % (0.0-4.0); Hematocrit 34.7 % (35.0-46.0); Hemoglobin 11.8 gm/dL (11.6-15.3); Lymph # (Auto) 0.5 th/mm3 (1.0-4.8); Lymph % (Auto) 8.1 % (9.0-44.0); Mean Corpuscular HGB Conc 33.9 % (32.0-36.0); Mean Corpuscular Hemoglobin 31.5 pg (27.0-34.0); Mean Corpuscular Volume 92.8 fL (80.0-100.0); Mean Platelet Volume 8.3 fL (7.0-11.0); Mono % (Auto) 0.5 % (0.0-8.0); Neut # (Auto) 5.4 th/mm3 (1.8-7.7); Neut % (Auto) 91.2 % (16.0-70.0); Platelet Count 226 th/mm3 (150-450); Red Blood Count 3.73 mil/mm3 (4.00-5.30); Red Cell Distribution Width 12.1 % (11.6-17.2); White Blood Count 5.9 th/mm3 (4.0-11.0)
[2018-06-02 06:31] LABS: Chloride 107 meq/L (98-107); Potassium 3.9 meq/L (3.5-5.1); Sodium 139 meq/L (136-145)
[2018-06-02 06:34] LABS: Calcium 7.9 mg/dL (8.5-10.1)
[2018-06-02 06:48] LABS: Alanine Aminotransferase 592 U/L (10-53); Albumin 3.4 g/dL (3.4-5.0); Alkaline Phosphatase 137 U/L (45-117); Anion Gap 7 meq/L (5-15); Aspartate Aminotransferase 342 U/L (15-37); Blood Urea Nitrogen 5 mg/dL (7-18); Carbon Dioxide 24.6 meq/L (21.0-32.0); Glomerular Filtration Rate Greater Than 89 mL/min (>89); Glucose,Random 128 mg/dL (74-106); Total Protein 6.8 g/dL (6.4-8.2)
--- NOTE | 2018-06-02 08:05 | P.PNGI ---
Subjective Interval history: Patient resting in bed doing better still having some epigastric discomfort and left lower quadrant discomfort that radiates to the lower abdomen and the right side no nausea or vomiting in fact appetite is improving and patient is asking for diet to be advanced Physical Exam Vital signs: Vital Signs 06/01/18 13:15 06/01/18 13:25 06/01/18 13:34 Temperature 98.4 F Pulse Rate 78 80 Respiratory Rate 14 14 Blood Pressure 106/64 103/64 Pulse Oximetry 100 100 100 06/01/18 13:41 06/01/18 16:00 06/01/18 20:00 Temperature 97.6 F 97.6 F Pulse Rate 75 81 88 Respiratory Rate 14 20 18 Blood Pressure 106/68 125/67 116/68 Pulse Oximetry 100 91 L 99 06/01/18 20:55 06/02/18 00:00 06/02/18 04:00 Temperature 97.4 F L Pulse Rate 93 H Respiratory Rate 18 Blood Pressure 94/53 L 110/62 Pulse Oximetry 98 95 Intake & Output 06/01/18 06/02/18 06/02/18 18:59 06:59 18:59 Intake Total 1949 1580 / 1580 Balance 1949 1580 / 1580 Weight 60.4 kg Intake: IV 1050 / 1050 1100 / 1100 NS Inj 1,000 ML @ 100 mls/hr IV 1000 / 1000 1000 / 1000 .CONT .Q10H RICHARD Rx#:[id number] Zosyn 3.375 GM Premix 3.375 gm 100 / 100 In 50 ml @ 100 mls/hr IV.SIG Q8H RICHARD Rx#:[id number] Flagyl 250 mg Inj 50 ML @ 100 50 / 50 mls/hr IV.SIG Q8H RICHARD Rx#: [id number] Oral 300 / 300 480 / 480 Anesthesia Amount 500 / 500 Other 100 / 100 Other: # Voids 5 4 Date of Last Bowel Movement 06/01/18 # Bowel Movements 6 2 - Constitutional no acute distress - Routine HEENT Exam Head: Present: normocephalic Eye: Present: EOMI ENT: Present: mucous membranes moist - Routine Neck Exam Present: supple. Absent: JVD - Routine Respiratory Exam Present: CTA bilaterally - Routine Cardiovascular Exam Present: RRR - Routine Abdominal Exam Present: soft, normoactive bowel sounds. Absent: tenderness, distended - Routine Extremities Exam Absent: cyanosis, clubbing, edema - Routine Skin Exam Present: dry, warm - Routine Neurological Exam Present: alert, oriented X3 Results - Labs CBC & Chem 7: 06/02/18 05:55 06/02/18 05:55 Laboratory Results - last 24 hr 05/31/18 05/31/18 06/01/18 10:32 10:32 04:05 CBC w Diff WBC RBC Hgb Hct MCV MCH MCHC RDW Plt Count MPV Neut % (Auto) Lymph % (Auto) [place] % (Auto) Eos % (Auto) Baso % (Auto) Neut # (Auto) Lymph # (Auto) [place] # (Auto) Eos # (Auto) Baso # (Auto) WBC Differential Differential Comment Sodium Potassium Chloride Carbon Dioxide Anion Gap BUN Creatinine Estimated GFR Random Glucose Calcium Total Bilirubin AST ALT Alkaline Phosphatase C-Reactive Protein Less than 0.29 Total Protein Albumin Stl C.difficile DNA Amp Negative St C. diff Tox Epid 027 Negative Rheumatoid Factor Scrn Negative HAYDEN Screen Pos H 06/01/18 06/02/18 06/02/18 08:06 05:55 05:55 CBC w Diff Auto diff final WBC 5.9 RBC 3.73 L Hgb 11.8 Hct 34.7 L MCV 92.8 MCH 31.5 MCHC 33.9 RDW 12.1 Plt Count 226 D MPV 8.3 Neut % (Auto) 91.2 H Lymph % (Auto) 8.1 L [place] % (Auto) 0.5 Eos % (Auto) 0.1 Baso % (Auto) 0.1 Neut # (Auto) 5.4 Lymph # (Auto) 0.5 L [place] # (Auto) 0.0 Eos # (Auto) 0.0 Baso # (Auto) 0.0 WBC Differential . Differential Comment . Sodium 142 139 Potassium 4.0 3.9 Chloride 109 H 107 Carbon Dioxide 28.4 24.6 Anion Gap 5 7 BUN 3 L 5 L Creatinine 0.72 0.65 Estimated GFR 88 L Greater than 89 Random Glucose 92 128 H Calcium 7.5 L D 7.9 L Total Bilirubin 0.4 0.4 AST 908 H 342 H ALT 784 H 592 H Alkaline Phosphatase 116 137 H C-Reactive Protein Total Protein 6.6 D 6.8 Albumin 3.4 D 3.4 Stl C.difficile DNA Amp St C. diff Tox Epid 027 Rheumatoid Factor Scrn HAYDEN Screen Microbiology 06/01/18 04:05 Stool Enteric Pathogens (PCR) - Final No enteric pathogens detected by PCR (No Salmonella sp., Shigella sp., Campylobacter sp., Yersinia enterocolitica, Vibrio sp., Norovirus, or EHEC (Shiga Toxin 1 or Shiga Toxin 2) detected. 06/01/18 04:05 Stool Stool for WBCs - Final No WBC's seen - Imaging Impressions Head CT 06/01/18 00:00 CONCLUSION: 1. Negative for acute process. Inflammatory process cannot be excluded on noncontrast CT. . . Liver Ultrasound 06/01/18 00:00 CONCLUSION: 1. Gallbladder surgically absent with 9 mm common duct, probably reservoir phenomena Assessment and Plan - Plan Abdominal pain with noted abnormalities on CT suggestive of colitis Colonoscopy yesterday reveals descending and sigmoid colitis possibly infectious in origin biopsies are pending Sudden elevation of liver function tests with a quick turnaround and decline probably related to an allergy no evidence of biliary stones I have added a couple more labs for further evaluation of abnormal liver function tests I do agree with advancing diet as tolerated We will repeat blood work for tomorrow if the downward trend continues and patient is tolerating intake she may be discharged from a GI standpoint follow- up as an outpatient
[2018-06-02] MEDS: Lactobacillus Acidophilus/L. Spores Tablet PO SCH ×3 (08:21→17:24)
--- NOTE | 2018-06-02 09:41 | P.PNIM ---
Subjective Interval history: Interval history: 47-year-old female who is seen examined for follow-up on colitis, hematochezia. Patient seen and examined, lying in bed states she feels much better today mild pain to palpation although has improved. Her headache has also improved today. GI and to see patient today, requesting 1 more night to monitor LFTs. Advance diet as tolerated. Patient doing much better on steroids. Workup to continue. Vital signs stable. Afebrile. has been updated as well. Physical Exam Vital signs: Vital Signs 06/01/18 13:15 06/01/18 13:25 06/01/18 13:34 Temperature 98.4 F Pulse Rate 78 80 Respiratory Rate 14 14 Blood Pressure 106/64 103/64 Pulse Oximetry 100 100 100 06/01/18 13:41 06/01/18 16:00 06/01/18 20:00 Temperature 97.6 F 97.6 F Pulse Rate 75 81 88 Respiratory Rate 14 20 18 Blood Pressure 106/68 125/67 116/68 Pulse Oximetry 100 91 L 99 06/01/18 20:55 06/02/18 00:00 06/02/18 04:00 Temperature 97.4 F L Pulse Rate 93 H Respiratory Rate 18 Blood Pressure 94/53 L 110/62 Pulse Oximetry 98 95 06/02/18 08:37 06/02/18 09:23 Temperature 98.4 F Pulse Rate 101 H Respiratory Rate 18 Blood Pressure 104/64 Pulse Oximetry 96 99 Intake & Output 06/01/18 06/02/18 06/02/18 18:59 06:59 18:59 Intake Total 1949 1580 / 1580 Balance 1949 1580 / 1580 Weight 60.4 kg Intake: IV 1050 / 1050 1100 / 1100 NS Inj 1,000 ML @ 100 mls/hr IV 1000 / 1000 1000 / 1000 .CONT .Q10H RICHARD Rx#:[id number] Zosyn 3.375 GM Premix 3.375 gm 100 / 100 In 50 ml @ 100 mls/hr IV.SIG Q8H RICHARD Rx#:[id number] Flagyl 250 mg Inj 50 ML @ 100 50 / 50 mls/hr IV.SIG Q8H RICHARD Rx#: [id number] Oral 300 / 300 480 / 480 Anesthesia Amount 500 / 500 Other 100 / 100 Other: # Voids 5 4 Date of Last Bowel Movement 06/01/18 # Bowel Movements 6 2 Narrative: GENERAL: Well-developed, well-nourished, in no acute distress. alert and orientated HEENT: Head is normocephalic without any lesions or masses noted. Facial features are symmetric. Eyes: Extraocular muscles are intact. Conjunctivae were clear. NECK: Supple without any masses. Trachea midline no deviation. No JVD CARDIAC: Regular rhythm, regular rate. S1/S2 are heard. No murmurs gallops or rubs. LUNGS: Clear to auscultation bilaterally. No wheeze, rhonchi or rales. No use of accessory muscles on inspiration or expiration. ABDOMEN: Soft, mild tenderness to left lower quadrant. Nondistended. Bowel sounds heard in all 4 quadrants. No organomegaly or masses. Negative rebound, negative guarding EXTREMITIES: No edema, pulses are equal bilaterally. No cyanosis or clubbing NEUROLOGY: Mood and affect appear appropriate. Cranial nerves II through XII grossly intact. Moving all extremities, speech is clear Results Labs CBC & Chem 7: 06/02/18 05:55 06/02/18 05:55 Labs: Microbiology 06/01/18 04:05 Stool Enteric Pathogens (PCR) - Final No enteric pathogens detected by PCR (No Salmonella sp., Shigella sp., Campylobacter sp., Yersinia enterocolitica, Vibrio sp., Norovirus, or EHEC (Shiga Toxin 1 or Shiga Toxin 2) detected. 06/01/18 04:05 Stool Stool for WBCs - Final No WBC's seen Imaging Imaging: Impressions Head CT 06/01/18 00:00 CONCLUSION: 1. Negative for acute process. Inflammatory process cannot be excluded on noncontrast CT. . . Liver Ultrasound 06/01/18 00:00 CONCLUSION: 1. Gallbladder surgically absent with 9 mm common duct, probably reservoir phenomena Assessment and Plan Plan Acute colitis with hematochezia, improving. CT scan indicating likely mild distal colitis No significant leukocytosis. Hemoglobin hematocrit have had a mild decrease from 12.9 -->10.6. Now 11.8 today. Antibiotics Cipro and Flagyl dcd secondary to possible hepatitis reactivity. Started on Zosyn IV. Continue probiotic for protection Stool for C. difficile was negative. Enteric pathogens, WBCs, ova and parasites are negative. Consulted GI, and following patient. Underwent colonoscopy showing descending and sigmoid colitis. Biopsies pending. Continue IV fluids. Advance diet per GI recommendations. Continue pain control Acute liver enzyme elevation, improving. Unknown etiology at this time Reviewed medication list and list does not appear to have any medication can cause acute liver injury Given the patient presenting with abdominal pain, diarrhea, recent illness. Possible acute hepatitis. -However bilirubin was normal, liver enzymes with acute elevation with AST going from 14--> 908. Has improved today. Liver ultrasound unremarkable for any acute findings. Hepatitis panel pending. -Recheck labs in a.m. 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 -Started on systemic steroids yesterday, symptoms have improved. Will need steroid taper on discharge. -We will encourage outpatient follow-up for allergies/reactivities. Patient has been educated. Cephalgia Patient does have history of migraines, headache improved. Possible etiology could be the use of morphine CT of the brain did not indicate any acute abnormality Imitrex for cephalgia continue. DVT prevention Sequential compression devices Avoid chemical prophylaxis secondary to hematochezia Discussed Condition With: Patient, nursing staff, Dr. Haney Progress Note: Quality VTE Deep Vein Thrombosis/Pulmonary Embolism Present on Admission: No
[2018-06-02 11:25] LABS: Hepatitits B Surface Antigen Nonreactive (Nonreactive)
[2018-06-02 12:35] LABS: Hepatitis A IgM Antibody Nonreactive (Nonreactive)
[2018-06-02 14:10] LABS: Mono Screen Neg (Neg)
[2018-06-02] MEDS: ALPRAZolam 0.25 MG Tablet PO PRN (20:47)
[2018-06-02] MEDS ORDERED: Famotidine 20 MG Tablet PO SCH (21:00)
[2018-06-02 22:18] VITALS: RESP 16
[2018-06-03] MEDS: Sod Chloride 0.9% Inj 1,000 ML IV.CONT SCH (00:19)
[2018-06-03] MEDS: MethylPREDNISolone Sod Succinate Inj 40 MG/ML Vial IV.PUSH SCH ×2 (00:20→05:27)
[2018-06-03] MEDS: Piperacil/Tazo 3.375 GM Premix 3.375 GM/50 ML PIGGYBACK IV.SIG SCH (03:23)
[2018-06-03 05:19] LABS: Hematocrit 29.2 % (35.0-46.0); Mean Corpuscular HGB Conc 34.3 % (32.0-36.0); Mean Corpuscular Hemoglobin 31.5 pg (27.0-34.0); Mean Corpuscular Volume 91.9 fL (80.0-100.0); Mean Platelet Volume 8.6 fL (7.0-11.0); Platelet Count 186 th/mm3 (150-450); Red Blood Count 3.17 mil/mm3 (4.00-5.30); White Blood Count 8.6 th/mm3 (4.0-11.0)
[2018-06-03] MEDS: Morphine Inj 4 MG/ML Vial IV.PUSH PRN (05:24)
[2018-06-03 05:25] LABS: Chloride 111 meq/L (98-107); Sodium 142 meq/L (136-145)
[2018-06-03 05:30] LABS: Calcium 7.9 mg/dL (8.5-10.1)
[2018-06-03 05:31] LABS: Albumin 3.1 g/dL (3.4-5.0); Anion Gap 5 meq/L (5-15); Glucose,Random 124 mg/dL (74-106)
[2018-06-03 05:34] LABS: Blood Urea Nitrogen 6 mg/dL (7-18)
[2018-06-03 05:35] LABS: Alanine Aminotransferase 375 U/L (10-53); Aspartate Aminotransferase 125 U/L (15-37); Glomerular Filtration Rate Greater Than 89 mL/min (>89)
[2018-06-03 05:37] LABS: Total Protein 6.1 g/dL (6.4-8.2)
[2018-06-03 05:38] LABS: Alkaline Phosphatase 101 U/L (45-117)
--- NOTE | 2018-06-03 07:52 | P.DS ---
DS: Providers Date of admission: 06/01/18 11:48 Primary care physician: Yoselyn Acevedo Consults: 05/31/18 13:37 Consult to Gastroenterology Routine Consulting Provider: Alison Patino Reason for Consultation: GI Bleeding, Colitis Notified:: Service Spoke with:: ELIDA Date Notified:: 05/31/18 Time Notified:: 13:42 Ordering Provider: JORGE ALBERTO Brief History from admission: 47-year-old female with known history of bowel syndrome, anxiety who presented to hospital for evaluation of abdominal pain, blood in her stool. Patient states that she is in normal state of health until yesterday proxy [phone] when she started developing abdominal pain. She contributed this to her irritable bowel syndrome and usually she will have a bowel movement and the pain goes away and she is much better. However, the patient had a bowel movement the pain did not go away and she started noticing that her stool was looser than usual and that there was bright red blood in her stool. Patient states that she had approximately 10 bowel movements after that and the more she had the more consistency of blood and there was stool. Because it did not get any better she came to the hospital for evaluation. Upon initial workup patient has CT scan which did indicate likely mild distal colitis. Patient was given morphine for the pain in the emergency department with only temporary relief the pain did come back. Because of the patient's symptoms, bloody stool it was recommended by the ER physician that the patient be admitted to hospital for further evaluation and management. DS: Summary This is a 47-year-old female patient who presented with acute colitis with hematochezia, CT scan indicating likely mild distal colitis. No significant leukocytosis. Antibiotics Cipro and Flagyl dcd secondary to possible hepatitis reactivity. Started on Zosyn IV. Continue probiotic for protection. Stool for C. difficile was negative. Enteric pathogens, WBCs, ova and parasites are negative. Consulted GI, and follow patient during hospitalization. Underwent colonoscopy showing descending and sigmoid colitis. Biopsies pending, will follow up outpatient. Was continued on IV fluids and antiemetics as well as pain control. GI follow patient during hospitalization. Patient did have acute liver enzyme elevation, really unknown etiology. It was suspected that he may be ciprofloxacin could have caused the elevation in LFTs, total bilirubin negative.. Hepatitis negative. Patient could have underlying lupus- like autoimmunity at baseline. Patient complains of various symptoms in the past year including rashes, bloating, fatigue, dysmenorrhea, abdominal pain, constant patient/diarrhea, dysphoria, diaphoresis. Started on systemic steroids during hospitalization and symptoms have improved. Discharged on steroid taper. Encouraged outpatient follow-up for allergies/reactivities. Patient has been educated. Patient also had Cephalgia, Patient does have history of migraines, headache improved. Possible etiology could be the use of morphine. CT of the brain did not indicate any acute abnormality. Imitrex for cephalgia during hospitalization. Patient symptoms improved. No recommendations for continuing abx from GI standpoint. Will dc home. Activity and diet as tolerated. RX as written. Patient is stable. Agrees to follow up. Time Spent with Patient Total time spent providing and/or coordinating discharge services: Greater than 30 minutes Quality: VTE Deep Vein Thrombosis/Pulmonary Embolism Present on Admission: No Exam Narrative Exam Narrative: GENERAL: Well-developed, well-nourished patient in NAD. SKIN: Warm and dry. No rash. HEAD: Normocephalic. Atraumatic. EYES: Pupils equal and round. No scleral icterus. No injection or drainage. ENT: No nasal bleeding or discharge. Mucous membranes pink and moist. NECK: Supple. Trachea midline. CARDIOVASCULAR: Regular rate and rhythm. S1, S2 noted. No murmur appreciated. RESPIRATORY: No accessory muscle use. Clear to auscultation. Breath sounds equal bilaterally. GASTROINTESTINAL: Abdomen soft, non-tender, nondistended. Normoactive bowel sounds x4. MUSCULOSKELETAL: No obvious deformities. Extremities without clubbing, cyanosis , or edema. NEUROLOGICAL: Awake and alert. No obvious cranial nerve deficits. Motor grossly within normal limits. 5/5 muscle strength in bilateral upper and lower extremities. Normal speech. PSYCHIATRIC: Appropriate mood and affect; insight and judgment normal. Results Pending studies at discharge: Pending at discharge 06/01/18 07:27 Surgical [PTH] Routine Labs on day of discharge: Labs from last 24 hours 06/03/18 06/03/18 06/02/18 04:54 04:54 05:55 WBC 8.6 RBC 3.17 L Hgb 10.0 L Hct 29.2 L MCV 91.9 MCH 31.5 MCHC 34.3 RDW 12.0 Plt Count 186 MPV 8.6 Sodium 142 Potassium 4.0 Chloride 111 H Carbon Dioxide 26.0 Anion Gap 5 BUN 6 L Creatinine 0.63 Estimated GFR Greater than 89 Random Glucose 124 H Calcium 7.9 L Total Bilirubin 0.4 AST 125 H ALT 375 H Alkaline Phosphatase 101 Total Protein 6.1 L D Albumin 3.1 L Mitochondria M2 IgG Ab Pending Anti-Smooth Muscle Ab Hepatitis A IgM Ab Hep Bs Antigen Hep B Core IgM Ab Hep C IgG Ab Monoscreen 06/02/18 06/02/18 06/02/18 05:55 05:55 05:55 WBC RBC Hgb Hct MCV MCH MCHC RDW Plt Count MPV Sodium Potassium Chloride Carbon Dioxide Anion Gap BUN Creatinine Estimated GFR Random Glucose Calcium Total Bilirubin AST ALT Alkaline Phosphatase Total Protein Albumin Mitochondria M2 IgG Ab Anti-Smooth Muscle Ab Pending Hepatitis A IgM Ab Nonreactive Hep Bs Antigen Nonreactive Hep B Core IgM Ab Nonreactive Hep C IgG Ab Nonreactive Monoscreen Neg Impressions ITS Impressions Abdomen/Pelvis CT 05/31/18 05:56 CONCLUSION: Likely mild distal colitis Head CT 06/01/18 00:00 CONCLUSION: 1. Negative for acute process. Inflammatory process cannot be excluded on noncontrast CT. . . Liver Ultrasound 06/01/18 00:00 CONCLUSION: 1. Gallbladder surgically absent with 9 mm common duct, probably reservoir phenomena Discharge Plan Discharge Disposition Patient Disposition: Discharge Home Discharge Condition Condition: Stable Discharge Order Discharge Orders: Discharge Order (Routine); Ordered 05/31/18 Ordered By: Nadya Maza Hospitalist Clear for Discharge (Routine); Ordered 06/03/18 Ordered By: Jaycee Givesn Discharge Details Anticipated Discharge Date: 06/03/18 Physicians Team ED Provider: Nadya Maza Primary Care Provider: Yoselyn Acevedo Attending Provider: Tiburcio Haney Other Providers: Alison Patino Rxs /Orders / Referrals /Forms Prescriptions: New methylprednisolone [Medrol ([place])] 4 mg tablets,dose pack 4 mg PO PER PKG DIR Qty: 21 RF: 0 acidophilus-sporogenes [Acidophilus Ex Str (L. sporog)] 35 million- 25 million cell Tablet 1 tab PO TID Qty: 14 RF: 0 ondansetron HCl [Zofran] 4 mg tablet 4 mg PO DAILY PRN (Reason: nausea and vomiting) 4 Days Qty: 14 RF: 0 oxycodone-acetaminophen [Percocet] 5-325 mg tablet 1 tab PO Q6H PRN (Reason: pain) Qty: 7 RF: 0 Continue ibuprofen 600 mg Tablet 600 mg PO TID PRN (Reason: Acute Pain) RF: 0 [id number] [Excedrin Migraine] 250-250-65 mg Tablet 1 tab PO Q4-6H PRN (Reason: Acute Pain) RF: 0 Calcium 500 1 tab PO DAILY RF: 0 Cholestoff 2 tab PO DAILY RF: 0 Vitamin D3 1 tab PO DAILY RF: 0 alprazolam [Xanax] 0.5 mg Tablet 0.5 tab PO HS PRN (Reason: Anxiety) RF: 0 Referrals: Yoselyn Acevedo DO [Primary Care Provider] - 06/10/18 12:00 am (NUMBER FOR IS [phone], APT IS FOR 06/11/18 AT 2PM) Alison Patino MD [Physician] - 06/10/18 12:00 am (DR PAZ OFFICE WILL CALL PT TO BOOK APT) Stand Alone Forms: Work Release/Restrictions Discharge Instructions Patient Printed Instructions: Oxycodone/Acetaminophen (By mouth), Methylprednisolone (By mouth), Ondansetron (By mouth), Probiotic (By mouth), Rectal Bleeding (ED), Colonoscopy (DC) Status ED Status: Left Department Discharge Information Discharge Date/Time: 06/03/18 12:05
[2018-06-03 08:52] VITALS: BP 120/74; PULSE 73; TEMP 96.2; O2SAT 97
[2018-06-03] MEDS: Lactobacillus Acidophilus/L. Spores Tablet PO SCH (09:26)
== END 2018-06-03 12:05 | disposition home or self-care (01) | DRG 387 ==
LOC: PHED 04:48 → PHEDA 04:48 → PH3 11:05
PROVIDERS: ADMIT Hospitalist; ATTEND Hospitalist
PROC: COLONOS (2018-06-01 12:45)
CPT/HCPCS: 70450; 74177; 76705; 80053; 80074; 81001; 83520; 83690; 85025; 85027; 85610; 85651; 85652; 85730; 86038; 86039; 86140; 86255; 86256; 86308; 86430; 86431; 86850; 86900; 86901; 87205; 87493; 87506; 88305; 90765; 90775; 96365; 96375; 96376; 99285; C9113; G0378; J0744; J2270; J2405; J2543; J2704; J2920; J3030; J7030; Q9967